=== PATIENT | male | born 1995 | race Caucasian/White ===

== ENCOUNTER 2017-08-09 18:16 | Emergency (ER) | payer OTHER ==
[~2017-08-09] VITALS: Ht 167.6 cm; Wt 91.6 kg
[2017-08-09] MEDS ORDERED: FLEXERIL10 MG PO (20:49)
[2017-08-09 21:15] VITALS: BP 130/84
== END 2017-08-09 21:16 | disposition home or self-care (01) ==
LOC: EME 18:16
DX: S20.219A Contusion of unspecified front wall of thorax, initial encounter (principal); S70.02XA Contusion of left hip, initial encounter; S40.012A Contusion of left shoulder, initial encounter; M54.2 Cervicalgia; R10.9 Unspecified abdominal pain; M79.604 Pain in right leg; M79.605 Pain in left leg; V47.5XXA Car driver injured in collision with fixed or stationary object in traffic accident, initial encounter; Y92.410 Unspecified street and highway as the place of occurrence of the external cause; F17.200 Nicotine dependence, unspecified, uncomplicated
CPT/HCPCS: 71046; 73502; 99281; 99283

== ENCOUNTER 2018-01-15 21:24 | Emergency (ER) | payer SELFPAY ==
[~2018-01-15] VITALS: Ht 170.2 cm; Wt 100.2 kg
[~2018-01-15 21:24] MED LIST: FLEXERIL10 MG PO
[2018-01-15 21:31] VITALS: BP 159/81
== END 2018-01-16 00:27 | disposition left against medical advice (07) ==
LOC: EME 21:24
DX: R06.02 Shortness of breath (principal); Z53.21 Procedure and treatment not carried out due to patient leaving prior to being seen by health care provider
CPT/HCPCS: 93005

== ENCOUNTER 2018-01-17 17:40 | Emergency (ER) | payer OTHER ==
[~2018-01-17] VITALS: Ht 170.2 cm; Wt 99.4 kg
[2018-01-17 18:43] LABS: APPEARANCE CLEAR ((CLEAR)); BILIRUBIN NEGATIVE; BLOOD NEGATIVE; COLOR YELLOW ((YELLOW)); GLUCOSE (STRIP) NEGATIVE; KETONES NEGATIVE; LEUKOCYTES NEGATIVE; NITRITE NEGATIVE; PROTEIN (STRIP) NEGATIVE; SPECIFIC GRAVITY 1.033 (1.000-1.030)
[2018-01-17 19:50] VITALS: BP 134/86
== END 2018-01-17 19:51 | disposition home or self-care (01) ==
LOC: EME 17:40
PROVIDERS: Emergency Medicine
DX: N50.812 Left testicular pain (principal); F17.200 Nicotine dependence, unspecified, uncomplicated
CPT/HCPCS: 76870; 81003